=== PATIENT | female | born 1950 | race Caucasian/White ===

== ENCOUNTER → 2019-09-11 15:28 | Outpatient (BNVA) | payer MEDICARE, SELFPAY | PROVIDERS: Family Provider Nurse Practitioner; PCP Nurse Practitioner; Visit Provider Specialist | DX: G43.909 Migraine, unspecified, not intractable, without status migrainosus (principal); F07.81 Postconcussional syndrome | CPT/HCPCS: 99214 ==

== ENCOUNTER → 2023-06-29 12:40 | Outpatient (BNVA) | payer MEDICARE, SELFPAY | PROVIDERS: Family Provider Nurse Practitioner; PCP Nurse Practitioner; Referring Provider Nurse Practitioner; Visit Provider Specialist | DX: R56.9 Unspecified convulsions (principal); S06.9XAA Unspecified intracranial injury with loss of consciousness status unknown, initial encounter; R42 Dizziness and giddiness; F07.81 Postconcussional syndrome; X58.XXXA Exposure to other specified factors, initial encounter | CPT/HCPCS: 99205 ==